=== PATIENT | male | born 1970 | race Caucasian/White ===

== ENCOUNTER 2018-05-11 13:32 | Emergency (ER) | payer MEDICARE, MEDICAID ==
[~2018-05-11] VITALS: Ht 182.9 cm; Wt 138.3 kg
[2018-05-11] MEDS ORDERED: KETOROLAC 60 MG/2 ML VIAL IM ONE (13:45)
[2018-05-11] MEDS ORDERED: ORPHENADRINE 60 MG/2 ML (NORFLEX) AMP IM ONE (13:45)
--- NOTE | 2018-05-11 13:48 | ED Back Pain ---
General Stated Complaint: BACK PAIN/FELL AT [facility] HOME Source of Information: Patient Exam Limitations: No Limitations History of Present Illness Date Seen by Provider: May 11, 2018 Time Seen by Provider: 13:44 Initial Comments to ER with midline low back pain that does not radiate down either leg. No loss of bowel or bladder control. This occurred just prior to arrival when he tripped and fell.he is from [place] but is here in [place] visiting a friend. Has a history of degenerative disc disease. He states that he takes nothing at home for pain. he mentioned his home medications to the nurse including blood pressure medication, inhaler, diabetic medication but he cannot recall the name. He forgot to mention the Celebrex, hydrocodone, naproxen, Zanaflex, Lyrica, Dilaudid filled at [place] [facility] on external medication history. THese were filled within the past month. Location: Lumbar Spine, Paraspinous Muscles Timing/Duration: 2-3 Days Severity: Moderate Pain/Injury Location: Back Associated Symptoms: denies symptoms Allergies and Home Medications Allergies Coded Allergies: No Known Drug Allergies (Unverified , 05/11/18) Patient Home Medication List Home Medication List Reviewed: Yes Constitutional: see HPI EENTM: see HPI Respiratory: no symptoms reported Cardiovascular: no symptoms reported Genitourinary: no symptoms reported Musculoskeletal: see HPI, back pain Skin: no symptoms reported Psychiatric/Neurological: No Symptoms Reported Past Vsjrwzc-Mmsihk-Lprvaz Hx Patient Social History Recent Foreign Travel: No Contact w/Someone Who Travel: No Physical Exam Vital Signs Vital Signs - First Documented 05/11/18 05/11/18 13:36 15:04 Temp 97.4 Pulse 101 Resp 18 B/P (MAP) 150/100 (117) Pulse Ox 98 O2 Delivery Room Air Capillary Refill : General Appearance: No Apparent Distress, WD/WN HEENT: PERRL/EOMI, TMs Normal Neck: Full Range of Motion, Normal Inspection Respiratory: No Accessory Muscle Use, No Respiratory Distress Gastrointestinal: Normal Bowel Sounds, Non Tender, Soft Back: Normal Inspection, Vertebral Tenderness Extremity: Normal Capillary Refill, Normal Inspection Neurologic/Psychiatric: Alert, Oriented x3 Skin: Normal Color, Warm/Dry Comments able to transfer himself out of wheelchair and into bed. Progress/Results/Core Measures Results/Orders My Orders Orders - SOLOMON CUTLER APRN Ketorolac Injection (Toradol Injection) (05/11/18 13:45) Orphenadrine Injection (Norflex Injectio (05/11/18 13:45) Ct Lumbar Spine Wo (05/11/18 13:43) Medications Given in ED Current Medications Medications Dose Ordered Sig/Franki Route Start Time Stop Time Status Last Admin Dose Admin Ketorolac Tromethamine 60 mg ONCE ONCE IM 05/11/18 13:45 05/11/18 13:46 DC 05/11/18 13:49 60 MG Orphenadrine Citrate 60 mg ONCE ONCE IM 05/11/18 13:45 05/11/18 13:46 DC 05/11/18 13:49 60 MG Vital Signs/I&O 05/11/18 05/11/18 13:36 15:04 Temp 97.4 Pulse 101 90 Resp 18 B/P (MAP) 150/100 (117) 150/98 Pulse Ox 98 96 O2 Delivery Room Air Room Air Departure Impression Primary Impression: Back pain Disposition: 01 HOME, SELF-CARE Condition: Stable Departure-Patient Inst. Decision time for Depature: 13:59 Referrals: NO,LOCAL PHYSICIAN (PCP) Primary Care Physician Patient Instructions: Low Back Pain (DC) Add. Discharge Instructions: 1. For your pain, rest,no heavy lifting and take some of the pain medication that you have prescribed within the past month as directed SOLOMON CUTLER APRN May 11, 2018 13:48
[2018-05-11] MEDS ORDERED: METF10002 PO (14:05)
[2018-05-11] MEDS ORDERED: INHALERS (14:05)
--- NOTE | 2018-05-11 14:48 | Diagnostic Imaging Report ---
PROCEDURE: CT lumbar spine without contrast. TECHNIQUE: Multiple contiguous axial images were obtained through the lumbar spine without the use of intravenous contrast. Sagittal and coronal reformations were then performed. INDICATION: Lower back pain, bilateral leg numbness. History of neuropathy. CORRELATION STUDY: None. FINDINGS: Reformatted images demonstrate normal alignment. Lumbar vertebral body heights overall are maintained. There is multilevel disc space narrowing essentially at all levels of various degrees. L5-S1 level with moderate loss of disc space height. There is endplate osteophyte formation. This does result in bilateral foraminal narrowing. Spinal canal mildly narrowed. L4-L5 level with moderate to marked loss of disc space height. Ligamentum and facet hypertrophy results in moderate spinal canal narrowing. Mild bilateral foraminal narrowing owing to disc and osteophyte formation. L3-L4 level with moderate to marked loss of disc space height and vacuum disc phenomenon. Endplate spurring results in mild bilateral foraminal narrowing. Moderate to marked spinal canal stenosis. L2-L3 level also with spinal canal narrowing owing to ligamentum hypertrophy. Moderate disc space narrowing. Mild bilateral foraminal narrowing owing to disc and osteophyte formation. L1-L2 level with slightly better preservation of disc space height. No significant endplate osteophyte formation. No appreciable foraminal narrowing. Very mild trefoil-type spinal canal configuration. T12-L1 level unremarkable. IMPRESSION: 1. Advanced multilevel lumbar spondylosis. Ligamentum and facet hypertrophy along with degenerative disc disease results in various degrees of spinal canal and foraminal narrowing. Given the overall symptoms and findings, if further assessment is desired, MRI may be of additional benefit. Dictated by: Dictated on workstation # [id number]
[2018-05-11 15:04] VITALS: BP 150/98
== END 2018-05-11 15:13 | disposition home or self-care (01) ==
LOC: ER 13:37
DX: M54.5 Low back pain (principal)
CPT/HCPCS: 72131; 96372